=== PATIENT | female | born 1980 | race American Indian/Alaskan Native ===

== ENCOUNTER 2019-04-27 07:27 | Emergency (ER) | payer MEDICAID, OTHER ==
--- NOTE | 2019-04-27 09:14 | Emergency Department Report ---
ED Rash HPI - HPI Chief Complaint: Skin Rash Stated Complaint: BUMPS ALL OVER Time Seen by Provider: 04/27/19 08:43 Duration: 1 week Location: Back, Upper Extremities, Lower Extremities Suspected Cause: Unknown Rash Symptoms: Yes Itching, Yes Blistering, No Facial Swelling, No Tongue/Oral Swelling, No Breathing Difficulties, No Choking Sensation, No Wheezing/Dyspnea, No Peeling, No Fever, No Lightheaded, No Malaise, No Myalgias Severity: moderate Other History: This is a 38 year-old female who presents to the emergency room with a generalized pruritic rash. Past medical history of hypertension. Patient reports the rash is worse to bilateral lower extremities and upper extremity. Patient states her daughter sleep in the same bed with her and does not have signs of rash. She is the only one in the home with symptoms. Patient states she has taken everything [id number] with no improvement in symptoms. Patient states she checked her bed and no signs of bed bugs. She denies difficulty swallowing, sore throat, drooling, hoarseness, fever. ED Review of Systems ROS: Stated complaint: BUMPS ALL OVER Other details as noted in HPI Constitutional: denies: chills, fever Respiratory: denies: cough, shortness of breath, wheezing Cardiovascular: denies: chest pain, palpitations Gastrointestinal: denies: abdominal pain, nausea, diarrhea Skin: rash. denies: lesions Neurological: denies: headache, weakness, paresthesias Psychiatric: denies: anxiety, depression ED Past Medical Hx - Past Medical History Previous Medical History?: Yes Hx Congestive Heart Failure: No Hx Diabetes: No Hx Asthma: Yes (mother) Hx COPD: No Additional medical history: 6 para 4 miscarriage 1 at 12 weeks. - Surgical History Past Surgical History?: Yes Additional Surgical History: cyst removed from behind left ear - Social History Smoking Status: Current Every Day Smoker Substance Use Type: None - Medications Home Medications: Home Medications Medication Instructions Recorded Confirmed Last Taken Type Vits96/Iron Fum/Folic 1 each PO QDAY #30 tablet 09/21/13 12/21/15 09/26/13 18:00 Rx [ Tablet] Docusate Sodium [Colace] 100 mg PO BID PRN #60 capsule 12/23/15 Unknown Rx Ferrous Sulfate [Feosol 325 MG tab] 325 mg PO BID #60 tablet 12/23/15 Unknown Rx Ibuprofen [Motrin] 800 mg PO Q8HR PRN #90 tablet 12/23/15 Unknown Rx Oxycodone HCl/Acetaminophen 1 each PO Q6HR PRN #45 tablet 12/23/15 Unknown Rx [Percocet 7.5/325 mg] Enoxaparin [Lovenox] 60 mg SQ Q12HR #7 syringe 01/19/16 Unknown Rx Warfarin [Coumadin] 5 mg PO QDAY #30 tablet 01/20/16 Unknown Rx Clindamycin [Clindamycin CAP] 300 mg PO Q8H #21 cap 04/27/19 Unknown Rx Norvasc 10 mg PO ONCE 04/27/19 04/27/19 Unknown History hydrOXYzine PAMOATE [Vistaril] 25 mg PO Q6HR PRN #20 capsule 04/27/19 Unknown Rx methylPREDNISolone [Medrol 4MG 4 mg PO DAILY #1 tab.ds.pk 04/27/19 Unknown Rx DOSEPAK (21 tabs)] Rash Exam - Exam General: Vital signs noted. No distress. Alert and acting appropriately. HEENT: No Periorbital Edema, No Conjuctival Injection, No Chemosis, No Perioral Edema, No Tongue Edema, No Uvular Edema, No Compromised Airway, No Drooling Lungs: Yes Good Air Exchange (Normal Breath Sounds), No Wheezes, No Ronchi, No Stridor, No Cough, No Labored Respirations, No Retractions, No Use of Accessory Muscles, No Other Abnormal Lung Sounds Heart: Yes Regular, No Murmur Skin: Yes Maculopapular Rash (erythematous maculopapular rash to the posterior torso, bilateral upper extremities and bilateral lower extremities.), Yes Erythema, Yes Other (cellulitis to bilateral lower extremities surrounding rash to right distal lateral tibia/fibula, tenderness, no weeping), No Urticarial Rash, No Morbilliform rash, No Bulla(e), No Excoriations, No Weeping, No Tenderness, No Edema, No Encrustations ED Course Vital Signs 04/27/19 07:29 Temperature 98 F Pulse Rate 95 H Respiratory 18 Rate Blood Pressure 155/104 O2 Sat by Pulse 98 Oximetry Vital Signs 04/27/19 04/27/19 04/27/19 07:29 09:47 09:48 Temperature 98 F Pulse Rate 95 H 63 63 Respiratory 18 20 Rate Blood Pressure 155/104 139/88 Blood Pressure 139/88 [Right] O2 Sat by Pulse 98 99 Oximetry ED Medical Decision Making - Medical Decision Making Patient was examined by me. Vitals are normal and patient is in no acute distress. Patient reports receiving all vaccines this child. There are signs of dermatitis with cellulitis to bilateral lower extremity. Patient will be started on antibiotics, steroids, and Vistaril. Past medical history of hypertension and patient admits to not taking blood pressure medication. Asymptomatic hypertension. Blood pressure improved on reevaluation. Educated on the importance of taking daily maintenance and lifestyle changes. Referrals to dermatology and allergy for follow-up. Plan discussed with patient to discharge home and treat outpatient. No further questions were asked. Patient discharged home in stable condition. Follow up with PCP in 2-3 days. Critical care attestation.: If time is entered above; I have spent that time in minutes in the direct care of this critically ill patient, excluding procedure time. ED Disposition Clinical Impression: Asymptomatic hypertension Atopic dermatitis Qualifiers: Atopic dermatitis type: intrinsic Qualified Code(s): L20.84 - Intrinsic (allergic) eczema Cellulitis Qualifiers: Site of cellulitis: extremity Site of cellulitis of extremity: lower extremity Laterality: right Qualified Code(s): L03.115 - Cellulitis of right lower limb Disposition: DC-01 TO HOME OR SELFCARE Is pt being admited?: No Does the pt Need Aspirin: No Condition: Stable Instructions: Contact Dermatitis (ED), Cellulitis (ED), Hypertension (ED) Additional Instructions: Please course of antibiotics and steroids as prescribed. I have provided a referral list to a [facility] for follow-up if symptoms are not improving. Return to the emergency room with worsening symptoms such as warmth to the area, swelling, redness, or fever. Prescriptions: Clindamycin [Clindamycin CAP] 300 mg PO Q8H #21 cap methylPREDNISolone [Medrol 4MG DOSEPAK (21 tabs)] 4 mg PO DAILY #1 tab.ds.pk hydrOXYzine PAMOATE [Vistaril] 25 mg PO Q6HR PRN #20 capsule PRN Reason: Itching Referrals: ESTUARDO HONG MD [Primary Care Provider] - 3-5 Days [facility] [Provider Group] - 3-5 Days [facility] [Provider Group] - 3-5 Days Forms: Work/School Release Form(ED) Time of Disposition: 09:20
[2019-04-27] MEDS ORDERED: NORVASC PO ONE (09:33)
[2019-04-27 09:48] VITALS: BP 139/88
== END 2019-04-27 09:48 | disposition home or self-care (01) ==
LOC: ED 07:27
DX: L03.115 Cellulitis of right lower limb (principal); L20.84 Intrinsic (allergic) eczema; I10 Essential (primary) hypertension; J45.909 Unspecified asthma, uncomplicated; F17.200 Nicotine dependence, unspecified, uncomplicated; Z98.890 Other specified postprocedural states; Z79.1 Long term (current) use of non-steroidal anti-inflammatories (NSAID); Z79.899 Other long term (current) drug therapy; Z79.01 Long term (current) use of anticoagulants
CPT/HCPCS: 99282